=== PATIENT | female | born 1965 | race Two or more races ===

== ENCOUNTER 2017-11-30 10:20 | Outpatient (CLI) | payer BC | END 2017-11-30 10:21 | disposition home or self-care (01) | LOC: BICMAMMO 10:20 | PROVIDERS: ATTEND Obstetrics & Gynecology | DX: Z12.31 Encounter for screening mammogram for malignant neoplasm of breast (principal); N64.89 Other specified disorders of breast | CPT/HCPCS: 77063; 77067 ==

== ENCOUNTER 2017-12-09 09:08 | Outpatient (CLI) | payer BC | END 2017-12-09 09:09 | disposition home or self-care (01) | LOC: BICMAMMO 09:08 | PROVIDERS: ATTEND Obstetrics & Gynecology | DX: R92.2 Inconclusive mammogram (principal) | CPT/HCPCS: G0279 ==

== ENCOUNTER 2019-01-10 08:58 | Outpatient (CLI) | payer BC ==
--- NOTE | 2019-01-10 09:27 | MMO ---
Bilateral MAMMO Bilat Screen [facility]. CLINICAL HISTORY: Patient is 54 years old and is seen for screening. The patient has no family history of breast cancer. The patient has no personal history of cancer. VIEWS: The views performed were: bilateral craniocaudal with tomosynthesis and bilateral mediolateral oblique with tomosynthesis. FILMS COMPARED: The present examination has been compared to prior imaging studies performed at [facility] on 10/17/2014, 11/05/2015, 11/25/2016, 11/30/2017 and 12/09/2017. MAMMOGRAM FINDINGS: There are scattered fibroglandular densities. There are benign appearing calcifications seen in both breasts. There are no suspicious masses, suspicious calcifications, or new areas of architectural distortion. IMPRESSION: THERE IS NO MAMMOGRAPHIC EVIDENCE OF MALIGNANCY. A ROUTINE FOLLOW-UP MAMMOGRAM IN 1 YEAR IS RECOMMENDED. THE RESULTS OF THIS EXAM WERE SENT TO THE PATIENT. ACR BI-RADS Category 2 - Benign finding MAMMOGRAPHY NOTE: 1. A negative mammogram report should not delay a biopsy if a dominant of clinically suspicious mass is present. 2. Approximately 10% to 15% of breast cancers are not detected by mammography. 3. Adenosis and dense breasts may obscure an underlying neoplasm.
== END 2019-01-10 08:59 | disposition home or self-care (01) ==
LOC: BICMAMMO 08:58
PROVIDERS: ATTEND Obstetrics & Gynecology
DX: Z12.31 Encounter for screening mammogram for malignant neoplasm of breast (principal)
CPT/HCPCS: 77063; 77067

== ENCOUNTER 2019-03-24 14:49 | Outpatient (CLI) | payer BC ==
[~2019-03-24 14:49] MED LIST: ISOVUE-370 76%-LOCM 1 ML ONE
--- NOTE | 2019-03-24 17:24 | CT ---
CT ANGIOGRAM HEAD WITH AND WITHOUT CONTRAST: 03/24/19 HISTORY: 54-year-old female with headache and questionable aneurysm reported on MRA of 01/31/19. TECHNIQUE: Standard precontrast scan of brain performed. IV injection of 90 mL Isovue 370. Arterial bolus chasing technique scan performed through head. Coronal and sagittal 3D MIP reconstructions. FINDINGS: The frontal, ethmoid, and sphenoid sinuses, are clear. Upper halves of the maxillary sinuses are katina r. Bilateral tympanomastoid cavities are grossly clear. Ventricles are normal in size and configurati on. No mass effect, midline shift, or extra-axial fluid collections. No subarachnoid, subdural, epidu ral, or intra-axial hemorrhage. Incidental finding of a round, 1 cm nodule in the upper scalp, slight ly to the left of midline, near the superior edge of the coronal suture. Underlying calvarium is norm al. There is no intracranial aneurysm. 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 The anterior and middle cerebral arteries, intracranial vertebral a rteries, basilar artery, carotid siphons, posterior cerebrals, and superior cerebellars, are normal in caliber. No atherosclerotic calcification. No high grade stenosis or occlusion. There is no dural venous sinus thrombosis. IMPRESSION: Normal. POS: [facility]
== END 2019-03-24 14:50 | disposition home or self-care (01) ==
LOC: BICCT 14:49
PROVIDERS: ATTEND Neurological Surgery
DX: I67.1 Cerebral aneurysm, nonruptured (principal)
CPT/HCPCS: 70496; Q9966

== ENCOUNTER 2020-02-22 10:09 | Outpatient (CLI) | payer BC ==
--- NOTE | 2020-02-22 11:14 | MMO ---
Bilateral MAMMO Bilat Screen [facility]. CLINICAL HISTORY: Patient is 55 years old and is seen for screening. The patient has no family history of breast cancer. The patient has no personal history of cancer. VIEWS: The views performed were: bilateral craniocaudal with tomosynthesis and bilateral mediolateral oblique with tomosynthesis. FILMS COMPARED: The present examination has been compared to prior imaging studies performed at [facility] on 11/25/2016, 11/30/2017, 12/09/2017 and 01/10/2019. This study has been interpreted with the assistance of computer-aided detection. MAMMOGRAM FINDINGS: There are scattered fibroglandular densities. There are stable benign appearing calcifications seen in both breasts. There are no suspicious masses, suspicious calcifications, or new areas of architectural distortion. IMPRESSION: THERE IS NO MAMMOGRAPHIC EVIDENCE OF MALIGNANCY. A ROUTINE FOLLOW-UP MAMMOGRAM IN 1 YEAR IS RECOMMENDED. THE RESULTS OF THIS EXAM WERE SENT TO THE PATIENT. ACR BI-RADS Category 2 - Benign finding MAMMOGRAPHY NOTE: 1. A negative mammogram report should not delay a biopsy if a dominant of clinically suspicious mass is present. 2. Approximately 10% to 15% of breast cancers are not detected by mammography. 3. Adenosis and dense breasts may obscure an underlying neoplasm. Reported by: KATIA LEIGH MD Electonically Signed: [id number]
== END 2020-02-22 10:10 | disposition home or self-care (01) ==
LOC: BICMAMMO 10:09
PROVIDERS: ATTEND Family Medicine
DX: Z12.31 Encounter for screening mammogram for malignant neoplasm of breast (principal)
CPT/HCPCS: 77063; 77067